=== PATIENT | female | born 1945 | race Caucasian/White ===

== ENCOUNTER → 2018-05-22 | Outpatient (CLI) | payer MEDICARE, OTHER ==
--- NOTE | 2018-05-22 13:44 | US ---
EXAMINATION TYPE: US kidneys/renal and bladder DATE OF EXAM: 05/22/2018 COMPARISON: NONE CLINICAL HISTORY: R94.4 Abnormal kidney function. Decreased renal function EXAM MEASUREMENTS: Right Kidney: 7.5 x 4.0 x 4.5 cm Left Kidney: 8.2 x 4.8 x 4.3 cm Right Kidney: small in size, cortical thinning, no hydronephrosis or renal masses seen Left Kidney: small in size, cortical thinning, no hydronephrosis or renal masses seen Bladder: not fully distended, wnl as seen Bilateral Jets seen: no There is no evidence for hydronephrosis at this point in time. No nephrolithiasis is seen. No antonio s are identified. The urinary bladder is poorly distended and thus suboptimally evaluated. Bilatera l ureteral jets are not seen. IMPRESSION: No hydronephrosis is evident bilaterally. Findings consistent with chronic medical renal disease as t here is diminished size to both kidneys with cortical thinning.
== END | disposition home or self-care (01) ==
LOC: RADUSWWP 12:20
PROVIDERS: ATTEND Family Medicine
DX: R94.4 Abnormal results of kidney function studies (principal)
CPT/HCPCS: 76770

== ENCOUNTER → 2019-10-13 | Outpatient (CLI) | payer MEDICARE, OTHER ==
--- NOTE | 2019-10-13 19:48 | US ---
EXAMINATION TYPE: US abdomen limited DATE OF EXAM: 10/13/2019 COMPARISON: NONE CLINICAL HISTORY: R10.12 left upper pain. RUQ pain EXAM MEASUREMENTS: Liver Length: 10.7 cm Gallbladder Wall: 0.3 cm CBD: 0.9 cm Right Kidney: 7.5 x 4.2 x 3.5 cm Pancreas: Tail obscured by overlying bowel gas Liver: appears wnl Gallbladder: no evidence of stones no gallstones. Evidence for sonographic Bhatia's sign: yes CBD: dilated Right Kidney: atrophic IMPRESSION: There is enlargement of the common bile duct but no significant enlargement of the intrah epatic bile ducts. This could relate to some gallbladder dysfunction. No gallstones.
== END | disposition home or self-care (01) ==
LOC: RADUSMAIN 16:52
PROVIDERS: ATTEND Nurse Practitioner
DX: K83.8 Other specified diseases of biliary tract (principal); Z87.19 Personal history of other diseases of the digestive system
CPT/HCPCS: 76705

== ENCOUNTER 2020-01-18 08:38 | Day surgery (SDC) | payer MEDICARE, OTHER ==
[2020-01-18] MEDS ORDERED: ALPRAZolam 0.25 MG TAB PO STA (09:11)
[2020-01-18 09:24] VITALS: TEMP 98
[2020-01-18 10:21] VITALS: BP 144/73; PULSE 76; RESP 17
--- NOTE | 2020-01-18 13:15 | US ---
EXAMINATION TYPE: US biopsy soft tissue/muscle DATE OF EXAM: 01/18/2020 HISTORY: Left Chest wall mass. Correlation CT chest 01/05/2020 outside institution FINDINGS: Maximal barrier technique was utilized. Hand hygiene achieved with soap and water. The ski n overlying a suitable path to the patient's mass in the posterior left chest wall was localized with ultrasound and the overlying skin prepped and draped. Ultrasound was utilized with sterile techniqu e. Lidocaine was used for local anesthesia. A skin yogi was made with a scalpel. An 18-gauge needl e was advanced under direct ultrasound guidance and core specimen obtained of the mass. 3 passes were made. Specimen submitted in formalin to Pathology. Following the procedure, hemostasis achieved an d the patient is discharged in stable condition without complication. IMPRESSION:STATUS POST ULTRASOUND GUIDED CORE BIOPSY OF left chest wall MASS, PATHOLOGY IS PENDING. THIS PROCEDURE IS PERFORMED BY THE UNDERSIGNED.
== END 2020-01-18 10:45 | disposition home or self-care (01) ==
LOC: RADPROMAIN 08:38
PROVIDERS: ATTEND Thoracic Surgery (Cardiothoracic Vascular Surgery)
DX: R22.2 Localized swelling, mass and lump, trunk (principal); Z90.710 Acquired absence of both cervix and uterus; Z85.828 Personal history of other malignant neoplasm of skin; Z98.890 Other specified postprocedural states; Z79.890 Hormone replacement therapy; Z79.899 Other long term (current) drug therapy; Z87.891 Personal history of nicotine dependence; Z80.0 Family history of malignant neoplasm of digestive organs; Z80.41 Family history of malignant neoplasm of ovary
CPT/HCPCS: 20206; 36415; 76942

== ENCOUNTER → 2020-01-28 | Outpatient (CLI) | payer MEDICARE ==
--- NOTE | 2020-01-31 07:36 | PE ---
EXAMINATION TYPE: PET CT fusion skull to thigh DATE OF EXAM: 01/29/2020 COMPARISON: Outside chest CT dated 01/05/2020 HISTORY: Initial treatment strategy for lung cancer/left chest wall mass. Biopsy-proven squamous cell carcinoma. TECHNIQUE: Following the intravenous administration of 13.9 mCi of F-18 FDG, whole body images are p erformed from the skull base to the midthigh. Images are reviewed on the computer in the coronal, ax ial, and sagittal planes. Reconstructed rotating images are created on independent workstation and r eviewed on the computer. A localization and attenuation correction CT is performed in conjunction w ith the PET scan. SCAN: Initial FINDINGS: Mediastinal background: 1.5 Abdominal background: 3.49 SKULL BASE AND NECK: No suspicious hypermetabolic activity CHEST, MEDIASTINUM, AND HILAR REGION: The a 4.4 x 2.9 cm soft tissue mass in the medial left lung bas e appears pleural-based and has a maximum SUV of 31.61. The previously seen abnormal soft tissue thickening of the left posterior lateral inferior thoracic w all and intercostal musculature causing lysis of the left 10th rib and periosteal reaction of the kady th and 10th ribs is redemonstrated with a maximum SUV of 58.05. This has measurements of approximatel y 6.9 x 4.1 cm. An additional left lower lobe subpleural pulmonary nodule seen medially measures 1.3 cm on image 89 a nd has a maximum SUV of 3.96. ABDOMEN AND PELVIS: No suspicious hypermetabolic activity OSSEOUS STRUCTURES: No suspicious hypermetabolic activity OTHER CT: There is mild diffuse osseous demineralization and moderate degenerative changes of the spi ne. As noted above there is destruction of the ninth and 10th left ribs. Atherosclerosis is seen of t he carotid arteries, thoracic aorta and abdominal aorta. There is an infrarenal abdominal aortic aneu rysm measuring 3.0 x 3.1 cm. There is a questioned chronic dissection flap that is calcified such as on image 153 and 54. There is a small hiatal hernia. Severe three-vessel coronary artery calcificatio ns are seen. No suspicious mediastinal adenopathy. IMPRESSION: 1. Hypermetabolic destructive pleural-based soft tissue left posterior chest wall mass, biopsy-proven squamous cell carcinoma, with an additional adjacent mass along the medial left lower lobe measuring 4.4 x 2.9 cm. There is also a left lower lobe hypermetabolic pulmonary nodule measuring 1.3 cm. [place] static lesions are localized to the left lung/pleural space with no suspicious mediastinal adenopathy nor evidence of infradiaphragmatic disease. 2. Infrarenal abdominal aortic aneurysm with calcified small chronic dissection flap.
== END | disposition home or self-care (01) ==
LOC: RADPETMAIN 14:26
PROVIDERS: ATTEND Radiology Radiation Oncology
DX: C34.32 Malignant neoplasm of lower lobe, left bronchus or lung (principal); I71.4 Abdominal aortic aneurysm, without rupture
CPT/HCPCS: 78815; A9552

== ENCOUNTER → 2020-09-06 | Outpatient (CLI) | payer MEDICARE ==
--- NOTE | 2020-09-06 12:13 | MR ---
EXAMINATION TYPE: MR brain wo/w con DATE OF EXAM: 09/06/2020 COMPARISON: None HISTORY: Lung cancer TECHNIQUE: Multiplanar, multisequence images of the brain and brainstem is performed without and with IV contras t, utilizing 5.5 mL intravenous Gadavist . FINDINGS: Diffusion weighted images demonstrate no evidence of a recent infarct or other diffusion ab normality. There is a diffuse periventricular and white matter abnormal signal most typical remote m icrovascular ischemia. Midline structures demonstrate normal morphology. The craniocervical junction appears within normal limits. Post contrast images demonstrate no abnormal enhancement. The dural venous sinuses appear pa tent. Changes of mild chronic sinusitis and mastoiditis are noted and the globes are intact. IMPRESSION: 1. Degenerative and nonspecific white matter changes most typical remote microvascular ischemia. 2. No enhancing masses.
== END | disposition home or self-care (01) ==
LOC: RADMRIMAIN 10:18
PROVIDERS: ATTEND Internal Medicine Hematology & Oncology
DX: Z03.89 Encounter for observation for other suspected diseases and conditions ruled out (principal); G31.9 Degenerative disease of nervous system, unspecified; R90.89 Other abnormal findings on diagnostic imaging of central nervous system
CPT/HCPCS: 70553; A9585

== ENCOUNTER 2024-01-06 11:57 | Day surgery (SDC) | payer MEDICARE ==
[2024-01-06 12:59] LABS: Platelet Count 329 k/uL (150-450)
[2024-01-06 13:18] VITALS: BP 169/74; PULSE 82; RESP 16; TEMP 97.4
[2024-01-06 13:19] LABS: Prothrombin Time 10.7 sec (10.0-12.5)
--- NOTE | 2024-01-06 15:14 | US ---
EXAMINATION TYPE: US discontinued thoracentesis DATE OF EXAM: 01/06/2024 2:29 PM CLINICAL INDICATION:Female, 78 years old with history of J91.8 PLEURAL EFFUSION IN OTHER CONDITIONS C LASSIF; patient history of left lung cancer with outside follow-up CT showing small amount of fluid a t the left base. COMPARISON: Old PET CT 01/28/2020. Patient's recent CT at [facility] is not available f or review. ATTENDING: Dr. Warren TECHNIQUE AND FINDING: The posterior and lateral aspect of the left hemithorax was scanned. At the site of focal protuberanc e posterolateral lower left chest wall, there is a small hypoechoic area measuring 1.7 cm. This is lo cated deep to the more superficial right cortex. Given that it corresponds to a firm, protuberant are a, it is suspected to represent chronic bony irregularity as a consequence of previous disease and po sttreatment change. No sizable pleural fluid collection is identified for fluid sampling. IMPRESSIONS: Discontinued diagnostic left thoracentesis. A questionable 1.7 cm area corresponds to the protuberant site posterolateral lower left chest wall and is located deep to the superficial cortex of the rib h ere. Given these findings, it is suspected to represent chronic bony irregularity as a consequence of previous disease and posttreatment change. No sizable pleural fluid is identified that would be amen able to fluid sampling. Consider short interval follow-up CT depending on clinical suspicion.
== END 2024-01-06 14:15 | disposition home or self-care (01) ==
LOC: RADPROMAIN 11:57
PROVIDERS: ATTEND Internal Medicine Hematology & Oncology
DX: Z53.8 Procedure and treatment not carried out for other reasons (principal); J91.8 Pleural effusion in other conditions classified elsewhere
CPT/HCPCS: 36415; 76604; 85049; 85610